=== PATIENT | female | born 1980 | race Caucasian/White ===

== ENCOUNTER 2021-07-29 11:26 | Emergency (ER) | payer OTHER ==
[2021-07-29 12:24] LABS: HEMOGLOBIN 13.2 gm/dl (12.3-15.3); RED BLOOD COUNT 4.13 M/UL (4.00-5.10); WHITE BLOOD COUNT 7.7 K/UL (4.5-11.0)
[2021-07-29 12:39] LABS: BUN/CREATININE RATIO 18 (0-10)
== END 2021-07-29 14:39 | disposition home or self-care (01) ==
LOC: ER1 11:26
PROVIDERS: Physician Assistant
DX: R51.9 Headache, unspecified (principal); B19.20 Unspecified viral hepatitis C without hepatic coma; Z90.49 Acquired absence of other specified parts of digestive tract
CPT/HCPCS: 70450; 80053; 81001; 82140; 83690; 84703; 85025; 99284; Q9967

== ENCOUNTER 2022-06-15 12:05 | Emergency (ER) | payer OTHER ==
[2022-06-15 13:45] LABS: RED BLOOD COUNT 4.18 M/UL (4.00-5.10); WHITE BLOOD COUNT 9.5 K/UL (4.5-11.0)
[2022-06-15 14:09] LABS: BUN/CREATININE RATIO 10 (0-10)
== END 2022-06-15 15:40 | disposition home or self-care (01) ==
LOC: ER1 12:05
PROVIDERS: Family Medicine
DX: R10.10 Upper abdominal pain, unspecified (principal); G89.29 Other chronic pain; R14.0 Abdominal distension (gaseous); F17.200 Nicotine dependence, unspecified, uncomplicated; Z86.19 Personal history of other infectious and parasitic diseases; Z90.49 Acquired absence of other specified parts of digestive tract; Z51.81 Encounter for therapeutic drug level monitoring
CPT/HCPCS: 80053; 82550; 82553; 83605; 83690; 84484; 84703; 85025; 85610; 93005; 99284; Q9967